=== PATIENT | female | born 1950 | race Caucasian/White ===

== ENCOUNTER → 2017-12-20 | Outpatient (CLI) | payer OTHER | LOC: RAD 03:57 | DX: Z12.31 Encounter for screening mammogram for malignant neoplasm of breast (principal) ==

== ENCOUNTER → 2018-12-23 | Outpatient (CLI) | payer OTHER | LOC: RAD 01:30 | DX: Z12.31 Encounter for screening mammogram for malignant neoplasm of breast (principal) ==